=== PATIENT | male | born 1960 | race Caucasian/White ===

== ENCOUNTER → 2021-09-16 | Outpatient (CLI) | payer OTHER ==
[~2021-09-16] MED LIST: AMOX TR-K CLV1 EAC4 PO; ASPIRIN EC81 MG PO; COLLOIDAL SILVER PO; ELIQUIS2.5 MG PO; IBUPROFEN600 MG PO; MULTIVITAMINS1 EAC1 PO; NORCO 5-325 TA1 EACH PO; NORCO 7.5-3251 EACH PO; THERAGRAN M TAB1 EA PO
== END ==
LOC: KOH-I 15:28
DX: M79.645 Pain in left finger(s) (principal); M19.042 Primary osteoarthritis, left hand
CPT/HCPCS: 73130